=== PATIENT | female | born 1935 ===

== ENCOUNTER 2023-06-03 11:07 | Outpatient (CLI) | payer OTHER | END 2023-06-03 11:10 | disposition home or self-care (01) | LOC: RAD 11:07 | DX: M54.6 Pain in thoracic spine (principal); M54.50 Low back pain, unspecified; M54.16 Radiculopathy, lumbar region ==

== ENCOUNTER 2023-06-09 11:44 | Outpatient (CLI) | payer OTHER | END 2023-06-09 11:54 | disposition home or self-care (01) | LOC: MRI 11:44 | DX: M54.17 Radiculopathy, lumbosacral region (principal); M54.50 Low back pain, unspecified; I63.9 Cerebral infarction, unspecified | CPT/HCPCS: 72148 ==